=== PATIENT | male | born 2000 | race Two or more races ===

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

== ENCOUNTER 2018-02-11 08:33 | Emergency (ER) | payer OTHER ==
--- OUTSIDE RECORDS SUMMARY | 2018-02-11 08:39 | XMS REPORT ---
:2000 External Reference #:[id number] Author Organization [employer] Address [address] [place] [address] [place] [address] Phone [phone] Care Team Providers Name Role Phone Sandra Peña MD Primary Care Physician Unavailable Payers Type Date Identification Numbers Payment Provider Subscriber Commercial Policy Number: [id number] Mannie Calderon PayID: [id number] [address] [place] [id number] Problems Description No Information Family History Date Family Member(s) Problem(s) Comments Father No Current Problems Mother Hypercholesterolemia Social History Type Date Description Comments Marital Status Single Occupation Student Working at [employer] during hernandez ETOH Use Negative For Denies alcohol use Smoking Patient has never smoked Recreational Drug Use Denies Drug Use Exercise Type/Frequency Exercises regularly Allergies, Adverse Reactions, Alerts Date Description Reaction Status Severity Comments 04/18/2016 NKDA active Medications Medication Date Status Form Strength Qnty SIG Indications Ordering Provider Clindamycin 01/18/20 Active Lotion 1% 60ml apply twice L70.0 Aba Quezada 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 Active 11/19/19 Hx Unknown Medications 18 - 01/18/20 18 Benzoyl / Hx Gel 5% apply to Unknown Peroxide 00 - cleanses 11/19/19 face 1x per 18 day Vital Signs Date Vital Result Comment 01/17/2018 Height 71.5 inches 5'11.50" Weight 163.00 lb Heart Rate 76 /min BP Systolic 109 mmHg BP Diastolic 64 mmHg O2 % BldC Oximetry 97 % BMI (Body Mass Index) 22.4 kg/m2 Height Percentile 76 % Weight Percentile 64th 11/18/2017 Height 71.5 inches 5'11.50" Weight 162.50 lb Heart Rate 64 /min BP Systolic 110 mmHg BP Diastolic 58 mmHg Body Temperature 96.0 F O2 % BldC Oximetry 99 % BMI (Body Mass Index) 22.3 kg/m2 Height Percentile 76 % Weight Percentile 64th 04/27/2016 Body Temperature 97.6 F 04/20/2016 Height 70.75 inches 5'10.75" Weight 145.00 lb Heart Rate 68 /min BP Systolic 102 mmHg BP Diastolic 62 mmHg Respiratory Rate 16 /min Body Temperature 96.7 F BMI (Body Mass Index) 20.4 kg/m2 Blood Pressure Percentile 3 % Height Percentile 70 % Weight Percentile 48th 06/05/2011 Height 61 inches 5'1" Weight 90.00 lb Heart Rate 66 /min BP Systolic 97 mmHg BP Diastolic 60 mmHg BMI (Body Mass Index) 17.0 kg/m2 Blood Pressure Percentile 14 % Height Percentile 55 % Weight Percentile 34th Results Test Date Test Result H/L Range Note Laboratory test finding 11/18/2017 Vitamin D Total 25(Oh) 27.7 ng/mL 20- 50 Vitamin B12 382 pg/mL 180-914 1 Ferritin 28.0 ng/mL 24-336 1 Normal Range 180 to 914 Indeterminate Range 145 to 180 Deficient Range <145 Procedures Date CPT Code Description Status 04/20/2016 77204 Excision, Benign Trunk,Arms,Legs 0.6 CM To 1.0 CM Completed Encounters Type Date Location Provider CPT E/M Dx Office Visit 11/18/2017 [facility] [place] [address] E55.9 11:00a - [place] Office Visit 04/20/2016 [facility], [address] L72.3 1:00p Kera BOND Office Visit 06/05/2011 [facility] [address] 719.42 8:45a Melo Wallace M.D. Plan of Care 01/17/2018 - Rusty Delacruz NPL70.0 Acne vulgarisNew Medication:Clindamycin Phosphate 1 %Comments:Start using the benzoyl peroxide wash once daily and applying the clindamycin twice daily. If your skin becomes too dry reduce to once daily.If not effective let me know.Follow up:prn
[2018-02-11 08:47] VITALS: BP 122/62
--- NOTE | 2018-02-11 09:32 | UC ---
Ear Complaint HPI - HPI Summary HPI Summary: THINKS A PIECE OF QTIP COTTON SWAB GOT STUCK IN HIS RIGHT EAR WHILE CLEANING IT THIS MORNING. NO PAIN, DRAINAGE OR HEARING LOSS. - History of Current Complaint Chief Complaint: UCEar Stated Complaint: FOREIGN OBJECT IN R EAR Time Seen by Provider: 02/11/18 09:20 Hx Obtained From: Patient Onset/Duration: Sudden Onset, Lasting Minutes Severity Initially: Mild Severity Currently: Mild Pain Intensity: 0 Pain Scale Used: 0-10 Numeric Aggravating Factors: Nothing Alleviating Factors: Nothing Associated Signs/Symptoms: Negative: Discharge, Hearing Loss, URI Symptoms - Allergies/Home Medications Allergies/Adverse Reactions: Allergies Allergy/AdvReac Type Severity Reaction Status Date / Time No Known Allergies Allergy Verified 02/11/18 08:47 Home Medications: Home Medications NK [No Home Medications Reported] 02/11/18 [History Confirmed 02/11/18] PMH/Surg Hx/FS Hx/Imm Hx Previously Healthy: Yes Other History Of: Negative For: Hepatitis B - Surgical History Surgical History: None - Family History Known Family History: Positive: Cardiac Disease, Diabetes Negative: Hypertension, Seizure Disorder Family History: Dyslipidemia - Social History Alcohol Use: Rare Substance Use Type: None Smoking Status (MU): Never Smoked Tobacco Review of Systems Constitutional: Negative Eyes: Other - POSSIBLE FB RIGHT EAR Respiratory: Negative Cardiovascular: Negative Gastrointestinal: Negative All Other Systems Reviewed And Are Negative: Yes Physical Exam Triage Information Reviewed: Yes Appearance: Well-Appearing, No Pain Distress, Well-Nourished Vital Signs: Initial Vital Signs Temp 97.6 F 02/11/18 08:42 Pulse 55 02/11/18 08:42 Resp 18 02/11/18 08:42 BP 122/62 02/11/18 08:42 Pulse Ox 100 02/11/18 08:42 Vital Signs Reviewed: Yes Eyes: Positive: Conjunctiva Clear ENT: Positive: Hearing grossly normal, TMs normal, Other - NO FB SEEN IN EITHER EAC Neck: Positive: Supple Respiratory: Positive: No respiratory distress, No accessory muscle use Cardiovascular: Positive: Pulses Normal Abdomen Description: Positive: Soft Musculoskeletal: Positive: No Edema Neurological: Positive: Alert Psychological: Positive: Age Appropriate Behavior Skin: Negative: rashes Ear Complaint Course/Dx - Differential Dx/Diagnosis Provider Diagnoses: NORMAL RIGHT EAR Discharge - Sign-Out/Discharge Documenting (check all that apply): Patient Departure All imaging exams completed and their final reports reviewed: No Studies - Discharge Plan Condition: Stable Disposition: HOME Referrals: Rusty Delacruz NP [Primary Care Provider] - If Needed Additional Instructions: THERE IS NO FOREIGN OBJECT IN YOUR EAR TODAY. USE QTIPS WITH CAUTION. BE SURE NOT TO INSERT TOO DEEPLY YOU CAN DAMAGE YOUR EAR DRUM. - Billing Disposition and Condition Condition: STABLE Disposition: Home
== END 2018-02-11 09:32 | disposition home or self-care (01) ==
LOC: UCEAST 08:33
DX: Z71.1 Person with feared health complaint in whom no diagnosis is made (principal)
CPT/HCPCS: 99211; G0463